=== PATIENT | female | born 1945 | race Caucasian/White ===

== ENCOUNTER 2017-09-26 11:15 | Outpatient (CLI) | payer MEDICARE, OTHER | END 2017-09-26 11:16 | disposition home or self-care (01) | LOC: BICMAMMO 11:15 | PROVIDERS: ATTEND Student in an Organized Health Care Education/Training Program | DX: Z12.31 Encounter for screening mammogram for malignant neoplasm of breast (principal); Z80.3 Family history of malignant neoplasm of breast | CPT/HCPCS: 77063; 77067 ==

== ENCOUNTER 2018-09-28 04:24 | Outpatient (CLI) | payer MEDICARE ==
[2018-09-28 11:16] LABS: Mean Corpuscular HGB CONC 34.6 g/dL (32.0-36.0); Mean Corpuscular Hemoglobin 31.1 pg (27.0-31.0); Mean Corpuscular Volume 89.8 fL (78.0-98.0); Mean Platelet Volume 8.4 fL (7.4-10.4); Platelet Count 368 thou/uL (130-400); RBC Distribution Width 11.9 % (11.5-14.5); Red Blood Cell (RBC) Count 4.51 mill/uL (4.20-5.40); White Blood Cell (WBC) Count 7.7 thou/uL (4.8-10.8)
--- NOTE | 2018-09-29 10:07 | EKG ---
Test Reason : Blood Pressure : / mmHG Vent. Rate : 056 BPM Atrial Rate : 056 BPM P-R Int : 184 ms QRS Dur : 132 ms QT Int : 444 ms P-R-T Axes : 051 -33 012 degrees QTc Int : 428 ms Sinus bradycardia Left axis deviation Right bundle branch block Abnormal ECG When compared with ECG of 20-MAY-2005 15:54, Right bundle branch block is now Present Minimal criteria for Anterior infarct are no longer Present Confirmed by DR. June COLLIER ([id number]) on 09/29/2018 10:07:13 AM Referred By: MONTY Confirmed By:DR. June COLLIER
== END 2018-09-28 04:25 | disposition home or self-care (01) ==
LOC: LABBT 04:24
PROVIDERS: ATTEND Student in an Organized Health Care Education/Training Program
DX: Z01.818 Encounter for other preprocedural examination (principal); N81.10 Cystocele, unspecified; N81.6 Rectocele; N92.4 Excessive bleeding in the premenopausal period; N84.0 Polyp of corpus uteri
CPT/HCPCS: 85027; 93005; 93010

== ENCOUNTER 2018-10-02 05:56 | Inpatient (IN) | payer MEDICARE ==
[2018-09-28 11:21] VITALS: BMI 28.7
[2018-10-02] MEDS ORDERED: Famotidine/PF 20 mg/2ml Vial ONE (06:03)
[2018-10-02] MEDS ORDERED: Gabapentin 300 MG CAP ONE (06:03)
[2018-10-02] MEDS ORDERED: CeleCOXIB 100 MG CAP ONE (06:03)
[2018-10-02] MEDS ORDERED: Bupivacaine HCl 0.5%/Epinephrine 1:200,000/PF 30 ml Vial ONE (06:41)
[2018-10-02] MEDS ORDERED: Fentanyl 100 MCG/2 ML VIAL ONE ×2 (07:01→10:56)
[2018-10-02] MEDS ORDERED: Ondansetron HCl/PF 4 MG/2 ML Vial IVP PRN (08:18)
[2018-10-02] MEDS ORDERED: Promethazine HCl 25 MG/ML VIAL IM PRN ×2 (08:18→10:33)
[2018-10-02] MEDS ORDERED: Promethazine HCl 25 MG/ML VIAL SLOW IVP PRN (08:18)
[2018-10-02] MEDS ORDERED: Lidocaine 0.5%/Epinephrine 1:200,000 50 ml Vial ONE (08:49)
[2018-10-02] MEDS ORDERED: Furosemide 20 MG/2 ML VIAL ONE (09:57)
[2018-10-02] MEDS ORDERED: Ondansetron PF 4 MG/2 ML Vial IVP PRN (10:33)
[2018-10-02] MEDS ORDERED: Simethicone Chewable 80 MG TAB PO PRN (10:33)
[2018-10-02] MEDS ORDERED: Bisacodyl 10 MG SUPP PR PRN (10:33)
[2018-10-02] MEDS ORDERED: Morphine 2 MG/ML SYRINGE SLOW IVP PRN (10:33)
[2018-10-02] MEDS ORDERED: HYDROcodone/Acetaminophen 5/325 mg Tablet PO PRN (10:33)
[2018-10-02] MEDS ORDERED: diphenhydrAMINE 25 MG CAP PO PRN (10:33)
[2018-10-02] MEDS ORDERED: Metoprolol Tartrate 5 MG/5 ML VIAL IVP PRN (10:42)
[2018-10-02] MEDS: Ketorolac Tromethamine 30 MG/ML VIAL IVP SCH ×2 (12:45→18:03)
[2018-10-02] MEDS: Sodium Chloride 0.9% 1,000 ML IV SCH ×2 (12:45→20:42)
[2018-10-02] MEDS ORDERED: Zolpidem Tartrate 5 MG TAB PO PRN (13:03)
[2018-10-02] MEDS ORDERED: Docusate Calcium (SURFAK) 240 MG CAP PO PRN (13:03)
[2018-10-02] MEDS ORDERED: PROPOFOL 200 MG/20 ML VIAL ONE (13:15)
[2018-10-02] MEDS ORDERED: Glycopyrrolate 0.2 MG/ML 5 ML SYRINGE ONE (13:15)
[2018-10-02] MEDS ORDERED: Rocuronium Bromide 10 MG/ML (10ML VIAL) ONE (13:15)
[2018-10-02] MEDS ORDERED: PHENYLEPHRINE-NS 100 MCG/ML 10 ML SYRINGE ONE (13:15)
[2018-10-02] MEDS ORDERED: Ketorolac Tromethamine 30 MG/ML VIAL ONE (13:15)
[2018-10-02] MEDS ORDERED: Ondansetron PF 4 MG/2 ML Vial ONE (13:15)
[2018-10-02] MEDS ORDERED: Dexamethasone 20 MG/5 ML VIAL ONE (13:15)
--- NOTE | 2018-10-02 17:27 | OP ---
DATE OF PROCEDURE: 10/02/2018 PREOPERATIVE DIAGNOSES: 1. Incomplete uterovaginal prolapse. 2. Cystocele. 3. Rectocele. 4. Postmenopausal bleeding. POSTOPERATIVE DIAGNOSES: 1. Incomplete uterovaginal prolapse. 2. Cystocele. 3. Rectocele. 4. Postmenopausal bleeding. PROCEDURES PERFORMED: Robotic-assisted total laparoscopic hysterectomy, bilateral salpingo-oophorectomy, uterosacral ligament suspension, posterior repair, and cystoscopy. ANESTHESIA: General endotracheal. SPECIALTY DEPARTMENT SUPERVISOR SURGEON: ALANA Davila. PATHOLOGY: Uterus, cervix, bilateral fallopian tubes, and ovaries. ESTIMATED BLOOD LOSS: 50 mL. IVF: 2500 mL of crystalloid. URINE OUTPUT: 200 mL of clear urine. COMPLICATIONS: None. DRAINS: Rolon catheter. FINDINGS: Small mobile uterus, sounded to 8 cm. Small subserosal fibroid anteriorly, otherwise normal-appearing uterus. Fallopian tubes and ovaries were within normal limits. On cystoscopy, there were no mucosal masses or injury. There were no abnormalities on the bladder mucosa. Bilateral ureters were noted to efflux vigorously. DESCRIPTION OF PROCEDURE: The patient was taken to the operating room, where general anesthesia was obtained without difficulty. The patient was prepped and draped in a sterile fashion in the dorsal lithotomy position. A Rolon catheter was placed in the bladder. A speculum was placed in the vagina. The anterior lip of the cervix was grasped with a single-tooth tenaculum. The uterus was then sounded to 8 cm. A CHRISTOPHER manipulator was assembled with an 8 cm tip and a 4 cm colpotomizer ring. The tip was then inserted into the fundus, and the colpotomizer ring was advanced, however, it was too large to fit the patient's introitus. Therefore, the CHRISTOPHER was removed and the 4 cm ring was switched out for 3.5 cm ring. The tip was then reinserted into the fundus. Balloon was inflated. The colpotomizer ring was advanced to fit snugly around the cervix, and the vaginal occluder balloon was inflated. Legs were placed in low lithotomy. Attention was turned to the abdomen. 0.5% Marcaine with epi was infiltrated into the umbilicus. A 12 mm skin incision was made in the umbilicus, and the Veress needle was passed into the abdomen noting an opening pressure of 1 mmHg. Pneumoperitoneum was obtained without difficulty. The Veress needle was removed. The 12 mm trocar was advanced into the abdomen and confirmed placement with robotic camera. Steep Trendelenburg was obtained. The right and left lower quadrant 8 mm robotic trocars were placed after infiltrating with 0.5% Marcaine with epi and making a skin incision under direct visualization. A right upper quadrant 11 mm certified pathology assistant port was also placed under direct visualization after infiltrating with anesthetic. The robot was then docked. The right robotic arm contained monopolar scissors. The left robotic arm contained a fenestrated bipolar. The uterosacrals were identified after sharply anteverting the uterus. The ureter was identified bilaterally along its course where it came close to the ureter, especially in the distal two-thirds. This area was grasped, and a window was made in the peritoneum just laterally to the uterosacral to allow the ureter to fall away and prevent kinking. This was made with the scissors and extended sharply with the scissors as well. This was performed bilaterally. There was what appeared to be a small enterocele in the posterior vaginal wall as well. The attention was turned to the fallopian tube on the right that was grasped and elevated. The ureter was noted medial to the IP. The ovary was hugged, clamped with the fenestrated and cauterized, and the infundibulopelvic ligament was transected with scissors. The meso-ovarian was cauterized and transected as well with hemostasis noted. The round ligament was cauterized and transected, and the anterior and posterior leaves of the broad ligament was opened up. The posterior leaf of the broad ligament was incised down to the level of the uterosacral, and the ureter was allowed to drop away. The anterior leaf of the broad ligament was incised as well with the scissors, and the vessels were skeletonized on the right side. The bladder flap was then created incising the vesicouterine peritoneum, and the adventitial fibers were transected on cautery with scissors. The attention was then turned to the left side, where the fallopian tube was grasped and elevated. The ureter was noted medial to the infundibulopelvic ligament. The IP was clamped with the fenestrated, cauterized, and then transected with the scissors. With hemostasis noted, the meso-ovarian was cauterized and transected down to the level of the round ligament that was cauterized in the midportion and transected and opened up the anterior and posterior leaves of the broad ligament. The anterior leaf was incised down to the level of the contralateral side's incision. The posterior leaf was dropped down to the level of the uterosacral, and the retroperitoneum was dissected through, allowing to skeletonize the uterine vessels. The bladder flap was then fully created by scoring on the anterior cervix and bluntly dissecting the bladder fibers well below the level of the colpotomizer ring to allow for adequate vault suspension. At that time, the vessels were cauterized and transected. The posterior colpotomy was made followed by the anterior colpotomy. The uterus was then removed out of the abdomen into the vagina as a means to maintain pneumoperitoneum. The vaginal cuff was copiously irrigated and suctioned. Hemostasis was achieved with the fenestrated. The scissors were traded out for the needle bung driver. The STRATAFIX suture was used to close the vaginal cuff in a running fashion with excellent reapproximation incorporating vaginal mucosa and posterior peritoneum in each bite. This needle was removed, and the uterus was then used to manipulate inside the vagina to the posterior compartment. The enterocele sac was then identified, and a STRATAFIX suture was used to perform a pursestring around this defect posteriorly. That needle was removed and then 0 Ethibond was used to plicate the uterosacral ligaments to the anterior and posterior vaginal cuffs incorporating the pubocervical fascia anteriorly as well. This was performed bilaterally again noting the ureters coursing laterally and the releasing incision preventing the ureteral kinking. Copious irrigation was again performed. Low pressure check was performed. Hemostasis was noted to be excellent. All instruments were removed out of the abdomen. Pneumoperitoneum was released. The fascia of the camera port was closed with a 0 Vicryl in a [id number] fashion. The skin was closed with 4-0 Monocryl in a subcuticular fashion. Dermabond was applied. Attention was then turned to the vaginal area, where the anterior compartment was noted to be suspended very well. Therefore, decision was made to perform the posterior repair only as a rectocele remained. The 70-degree cystoscope was then assembled, and the Rolon catheter was removed. This was inserted into the bladder, and the bladder was filled with saline and again the above findings were noted including normal mucosa. No inadvertent injury to the bladder during the hysterectomy. The vault suspension and bilateral ureteral jets were noted. The cystoscope was removed. Rolon catheter was replaced. A Javier was used to retract and total traction on the vaginal mucosa. The posterior wall was infiltrated with 0.5% lidocaine with epi, and the Bovie was used on cut to make an incision in the midline of the posterior wall, placing Allis on the mucosal edges. The rectovaginal fascia was then dissected off the vaginal mucosa with Metzenbaums as well as a fluffed-out Ray-Liza almost entirely all the way up to the vaginal apex. The rectocele was then repaired with 2-0 Vicryl in a [id number] fashion, plicating the rectovaginal fascia in the midline. Rectal exam was then performed. There was no suture material contained in the rectum, and the rectocele was completely repaired. The posterior mucosa was then reapproximated with a 2-0 Vicryl in a running fashion. Irrigation was performed, and moist Kerlix was placed as a vaginal pack. All instruments removed out of the vagina. The patient tolerated procedure well. Sponge and needle counts correct x2. The patient was taken to recovery room in stable condition. The patient received Ancef 2 g prior to the procedure. Job ID: [id number]
[2018-10-03] MEDS: Ketorolac Tromethamine 30 MG/ML VIAL IVP SCH ×2 (00:34→06:08)
[2018-10-03] MEDS: Sodium Chloride 0.9% 1,000 ML IV SCH (06:11)
[2018-10-03 06:29] LABS: Hemoglobin 11.8 g/dL (12.0-16.0); Mean Corpuscular Hemoglobin 30.5 pg (27.0-31.0); Mean Corpuscular Volume 89.7 fL (78.0-98.0); Mean Platelet Volume 8.3 fL (7.4-10.4); Platelet Count 312 thou/uL (130-400); RBC Distribution Width 11.6 % (11.5-14.5); Red Blood Cell (RBC) Count 3.87 mill/uL (4.20-5.40); White Blood Cell (WBC) Count 15.6 thou/uL (4.8-10.8)
[2018-10-03] MEDS: Hydrochlorothiazide 25 MG TAB PO SCH (08:40)
[2018-10-03] MEDS: HYDROcodone/Acetaminophen 5/325 mg Tablet PO PRN ×2 (08:40→16:10)
[2018-10-04 07:52] VITALS: BP 163/67; TEMP 98.2
--- NOTE | 2018-10-04 07:57 | PDOC.EVN ---
Event Note - Event Note Event Note: POD2 S: No complaints, feeling well, pain controlled. Kiran po. O: VSSAF UOP 2200cc per turner overnight NAD Unlabored breathing soft/nontender/ND BS + Inc c/d/i No e/c/c VT this am: backfilled 300, voided 200, bladder scan 197cc A: POD2 s/p RATLH vault suspension posterior repair cysto P: Improved voiding this am, still has increased residuals, allow pt to walk and reattempt to void within next 1-2hr. Postop care reviewed, postop pain meds already called out DC home after residuals 30% or less. FU 2 wk
[2018-10-04] MEDS: Hydrochlorothiazide 25 MG TAB PO SCH (09:32)
[2018-10-07] MEDS ORDERED: Ibuprofen 800 MG TAB PO SCH (21:00)
== END 2018-10-04 10:30 | disposition home or self-care (01) | DRG 743 ==
LOC: SDC 05:56 → EDSTATUS 10:30 → 3SE 12:08
PROVIDERS: ADMIT Student in an Organized Health Care Education/Training Program; ATTEND Student in an Organized Health Care Education/Training Program
PROC: 0UT94ZZ Resection of Uterus, Percutaneous Endoscopic Approach (ICD-10-PCS; principal; 2018-10-02)
PROC: 0UT74ZZ Resection of Bilateral Fallopian Tubes, Percutaneous Endoscopic Approach (ICD-10-PCS; 2018-10-02)
PROC: 0UT24ZZ Resection of Bilateral Ovaries, Percutaneous Endoscopic Approach (ICD-10-PCS; 2018-10-02)
PROC: 0US94ZZ Reposition Uterus, Percutaneous Endoscopic Approach (ICD-10-PCS; 2018-10-02)
PROC: 8E0W4CZ Robotic Assisted Procedure of Trunk Region, Percutaneous Endoscopic Approach (ICD-10-PCS; 2018-10-02)
PROC: 0TJB8ZZ Inspection of Bladder, Via Natural or Artificial Opening Endoscopic (ICD-10-PCS; 2018-10-02)
PROC: 0JQC3ZZ Repair Pelvic Region Subcutaneous Tissue and Fascia, Percutaneous Approach (ICD-10-PCS; 2018-10-02)
DX: N81.2 Incomplete uterovaginal prolapse (principal); N81.6 Rectocele; N95.0 Postmenopausal bleeding; N84.0 Polyp of corpus uteri; I10 Essential (primary) hypertension; I25.10 Atherosclerotic heart disease of native coronary artery without angina pectoris; E78.5 Hyperlipidemia, unspecified; M19.91 Primary osteoarthritis, unspecified site; Z86.73 Personal history of transient ischemic attack (TIA), and cerebral infarction without residual deficits; Z88.2 Allergy status to sulfonamides; Z90.49 Acquired absence of other specified parts of digestive tract; Z90.89 Acquired absence of other organs
CPT/HCPCS: 36415; 85027; 86850; 86900; 86901; 88307; 88311; J0670; J0690; J1100; J1885; J1940; J2001; J2405; J2704; J3010; Q9968; S0028

== ENCOUNTER 2019-03-21 08:49 | Outpatient (CLI) | payer MEDICARE ==
--- NOTE | 2019-03-21 09:37 | MMO ---
Bilateral MAMMO Bilat Screen [facility]. CLINICAL HISTORY: Patient is 74 years old and is seen for screening. The patient has no personal history of cancer. The patient has a history of left Excisional Biopsy in 1975 - benign. VIEWS: The views performed were: bilateral craniocaudal with tomosynthesis and bilateral mediolateral oblique with tomosynthesis. FILMS COMPARED: The present examination has been compared to prior imaging studies performed at [facility] on 08/21/2015 and 09/26/2017, and at [facility] on 07/13/2006 and 06/23/2008. This study has been interpreted with the assistance of computer-aided detection. MAMMOGRAM FINDINGS: The breasts are heterogeneously dense, which could obscure a lesion on mammography. There are no suspicious masses, suspicious calcifications, or new areas of architectural distortion. IMPRESSION: THERE IS NO MAMMOGRAPHIC EVIDENCE OF MALIGNANCY. A ROUTINE FOLLOW-UP MAMMOGRAM IN 1 YEAR IS RECOMMENDED. THE RESULTS OF THIS EXAM WERE SENT TO THE PATIENT. ACR BI-RADS Category 1 - Negative MAMMOGRAPHY NOTE: 1. A negative mammogram report should not delay a biopsy if a dominant of clinically suspicious mass is present. 2. Approximately 10% to 15% of breast cancers are not detected by mammography. 3. Adenosis and dense breasts may obscure an underlying neoplasm. Reported by: Seth HARDEN Electonically Signed: [id number]
--- NOTE | 2019-03-21 11:09 | BD ---
DEXA BONE DENSITY STUDY: HISTORY: Postmenopausal female. Screening study. LUMBAR SPINE BMD (g/cm2) T-SCORE Z-SCORE L1 0.849 -1.3 0.9 L2 1.211 1.7 4.1 L3 1.067 -0.2 2.4 L4 1.018 -0.4 2.2 TOTAL 1.038 -0.1 2.4 FEMORAL NECK 0.774 -0.7 1.5 TOTAL 0.898 -0.4 1.5 IMPRESSION: 1. Lumbar spine WHO classification is normal. Fracture risk is not increased. 2. Femoral neck WHO classification is normal. Ten year fracture risk not reported because all scores are at or above -1.0. POS: OFF
== END 2019-03-21 08:50 | disposition home or self-care (01) ==
LOC: BICMAMMO 08:49
PROVIDERS: ATTEND Family Medicine
DX: Z12.31 Encounter for screening mammogram for malignant neoplasm of breast (principal); Z13.820 Encounter for screening for osteoporosis; Z78.0 Asymptomatic menopausal state
CPT/HCPCS: 77063; 77067; 77080